=== PATIENT | female | born 1970 | race Asian ===

== ENCOUNTER → 2022-12-22 14:36 | Outpatient (BNVA) | payer OTHER, SELFPAY | PROVIDERS: PCP Podiatrist Foot & Ankle Surgery; Visit Provider Nurse Practitioner Family | DX: M47.816 Spondylosis without myelopathy or radiculopathy, lumbar region (principal); M54.16 Radiculopathy, lumbar region; E11.40 Type 2 diabetes mellitus with diabetic neuropathy, unspecified | CPT/HCPCS: 99202 ==

== ENCOUNTER → 2023-02-05 15:18 | Outpatient (BNVA) | payer OTHER, SELFPAY | PROVIDERS: PCP Physician Assistant; Visit Provider Nurse Practitioner Family | DX: E11.40 Type 2 diabetes mellitus with diabetic neuropathy, unspecified (principal); M47.26 Other spondylosis with radiculopathy, lumbar region | CPT/HCPCS: 17999; 99212; J7336 ==

== ENCOUNTER 2023-06-11 10:41 | Outpatient (AMB) | payer OTHER, SELFPAY ==
--- NOTE | 2023-06-11 10:45 | MHC.OFFVIS ---
Intake Vital Signs 06/11/23 10:48 06/11/23 11:43 06/11/23 11:44 Height 5 ft 2 in Weight 117 lb BMI 21.4 BP 122/73 107/69 117/73 Blood Pressure Location Rt brachial Rt brachial Rt brachial Position Sitting Sitting Sitting Pulse 100 103 H 107 H Pulse Source Pulse Oximeter Pulse Oximeter Pulse Oximeter Pulse Oximetry (%) 100 100 100 Oxygen Delivery Method Room Air Room Air Room Air Comment 15 mins after qutenza application 30 mins after qutenza application Intake Visit Reasons: Quetenza Application Intake Note: Annalisa is here to day for Qutenza application to bilateral feet. Pain today 01/08. Lot#[id number] Exp [facility]# [id number] Power Lineworker Required: Yes Power Lineworker Name: Daughter Accompanied by: Daughter Allergies No Known Allergies Allergy (Verified 06/11/23 11:01) HPI HPI Comments History of Present Illness Details Patient presents for 2nd round application of capsaicin 8% topical patch for diabetic neuropathy in bilateral feet. Patient reports improved pain symptoms during sleep after initial application of Qutenza. Denies any recent cough, cold, infection, fever or other significant changes in medical history since last office visit. PRIOR: Patient is a pleasant 52 years old female presents today with chronic feet pain related to diabetic neuropathy. Her pain is worse during the night and is constant. Pain has been worsening for the past 2 years, constant but most severe at night. Patient describes her pain in terms of tissue damage as constant hot burning, scalding, searing, tingling, and stinging. She is wearing light sandals today and keeps her shoes off during today?s visit. Patient?s daughter explained that the patient is most of the time barefoot as she has increased pain with anything that touches her feet. Pain is increased with activity and movements as well as with rest. Patient tried to manage her pain with gabapentin, lidocaine patches, and diclofenac gel with no pain relief. She also has low back pain and is currently seeing Dr. Fallon at [facility] and has received injections with good results. Patient reports her lumbar spine MRI was completed at [facility]. Reports low back pain with bending and radiation of pain into her right lower extremity anteriorly and laterally. MRI report is not available today. Most recent A1C level is not available as well. Family reports the patient is not checking blood sugars daily as this process is very painful to her fingers. Patient completed 6 weeks of physical therapy last year with no pain relief. 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 Bueno for a potential spinal cord stimulation trial for diabetic neuropathy in her feet. Patient denies any fever, weight loss, bladder or bowel incontinence or saddle anesthesia. [facility] Medical History Vitamin D deficiency Insomnia Depression GERD (gastroesophageal reflux disease) Hypertension Diabetic neuropathy Social History Patient Tobacco Use Status: Former Tobacco user Tobacco use type: Smokeless Tobacco Review of Systems Const All systems reviewed & are unremarkable except as noted in HPI and below Physical Exam Vital Signs: Last Vital Signs Pulse 100 06/11/23 10:48 BP 122/73 06/11/23 10:48 Pulse Ox 100 06/11/23 10:48 Oxygen Delivery Method Room Air 06/11/23 10:48 BMI result Body Mass Index 21.4 General: Appears afebrile. Alert and oriented. Mood and affect appropriate. Fully engaged during exam. Follows and participates in conversation appropriately. Respiratory effort is unlabored. No cough. Able to transition from sit to stand unassisted. Ambulates with bilaterally normal heel strike and toe off. Extrem Other: Patient presents with localized tenderness with palpation to plantar and dorsal surfaces of both feet. Tenderness to tip of right big toe, no swelling, no erythema, no warmth. Decreased sensation in plantar bilateral big toe distribution. No masses, no rash, or skin lesions noted. Protective pain sensation is intact. General: Yes capillary refill normal, Yes no clubbing, cyanosis or edema and Yes no calf tenderness Office Procedures Topical Capsaicin Date 1:: 02/02/23 Date 2:: 06/11/23 Main area of pain on the body: Dorsal and plantar regions of bilateral feet Laterality: Bilateral Location of left foot pain: Plantar, Dorsal, Lateral and Distal Location of right foot pain: Plantar, Dorsal, Lateral and Distal Quality of pain: Aching, Stabbing, Burning, Throbbing, Numb-like and Tiring Details:: EMLA Cream (lidocaine 2.5% and prilocaine 2.5%) was not applied by patient as she could not find her cream. Patient elected to proceed with Qutenza without EMLA cream application. The patient tolerated the procedure well. Her vitals signs remained stable throughout the procedure. Patient was able to complete the stipulated 30 minutes of the therapeutic application without any discomfort. 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 Assessment & Plan Assessment & Plan (1) Chronic painful diabetic neuropathy: Code(s): E11.40 - Type 2 diabetes mellitus with diabetic neuropathy, unspecified Plan Patient is status post 2nd round of application of topical capsaicin 8% for diabetic neuropathy in bilateral feet. Patient tolerated the procedure without significant discomfort without application of EMLA cream prior to the procedure. She was discharged home in stable condition with discharge instructions. EMLA script provided for next Qutenza application. All questions and concerns were answered and the patient agreed with the plan. Greater than 40 minutes were spent in therapeutic application and in coordination of the care. Orders: Orders AMB Capsaicin Patch - Practice Supplied Today E11.40 - Type 2 diabetes mellitus with diabetic neuropathy, unspecified Medications: Changed From lidocaine-prilocaine 2.5-2.5 % Apply 15-30 min to both feet prior to Qutenza patch application on 02/05/23 1 appl topical ONCE 30 grams 0RF Qutenza procedure E11.40 - Type 2 diabetes mellitus with diabetic neuropathy, unspecified To lidocaine-prilocaine 2.5-2.5 % Apply 15-30 min to both feet prior to Qutenza patch application 1 appl topical ONCE 30 grams 0RF Qutenza procedure E11.40 - Type 2 diabetes mellitus with diabetic neuropathy, unspecified Coding Level of Care Code Est Pt Level 5 (45591) Diagnoses Chronic painful diabetic neuropathy E11.40
[2023-06-11 10:48] VITALS: BP 122/73; PULSE 100; O2SAT 100; BMI 21.4
[2023-06-11 11:43] VITALS: BP 107/69; PULSE 103; O2SAT 100
[2023-06-11 11:44] VITALS: BP 117/73; PULSE 107; O2SAT 100
== END 2023-06-11 11:45 | disposition home or self-care (01) ==
PROVIDERS: PCP Physician Assistant; Visit Provider Nurse Practitioner Family
DX: E11.40 Type 2 diabetes mellitus with diabetic neuropathy, unspecified (principal)
CPT/HCPCS: 17999; 99215

== ENCOUNTER → 2023-06-11 10:41 | Outpatient (BNVA) | payer OTHER, SELFPAY | PROVIDERS: PCP Physician Assistant; Visit Provider Nurse Practitioner Family | DX: E11.40 Type 2 diabetes mellitus with diabetic neuropathy, unspecified (principal) | CPT/HCPCS: 17999; 99212; J7336 ==

== ENCOUNTER 2023-09-10 12:40 | Outpatient (AMB) | payer OTHER, SELFPAY ==
[2023-09-10 12:53] VITALS: BP 111/74; PULSE 91; O2SAT 98; BMI 22.9
--- NOTE | 2023-09-10 12:53 | A.OFFVIS_ITS ---
Intake Vital Signs 09/10/23 12:53 09/10/23 13:24 09/10/23 13:45 Height 5 ft 2 in Weight 125 lb BMI 22.9 BP 111/74 109/79 113/73 Blood Pressure Location Rt brachial Rt brachial Rt brachial Position Sitting Sitting Sitting Pulse 91 80 95 Pulse Source Pulse Oximeter Pulse Oximeter Pulse Oximeter Pulse Oximetry (%) 98 99 98 Oxygen Delivery Method Room Air Room Air Room Air Comment 15 mins after qutenza application 30 mins after qutenza application Intake Visit Reasons: QUTENZA/lvm Intake Note: Pain today 02/07 Section Hand Required: Yes Allergies No Known Allergies Allergy (Verified 06/11/23 11:01) HPI HPI Comments History of Present Illness Details Patient presents for 3rd round application of capsaicin 8% topical patch for diabetic neuropathy in bilateral feet. Patient reports improved pain symptoms during sleep after initial application of Qutenza however reports tingling and burning pain over her dorsal parts of both feet remains the same. She also reports increasing pain in both medial aspects of both ankles, right worse than left. She is interested in mild increase in her gabapentin dose for neuropathy. Patient declines previous ankle evaluation by Orthopedic provider or ankle injections. Denies any recent cough, cold, infection, fever or other s ignificant changes in medical history since last office visit. PRIOR: Patient is a pleasant 52 years old female presents today with chronic feet pain related to diabetic neuropathy. Her pain is worse during the night and is constant. Pain has been worsening for the past 2 years, constant but most severe at night. Patient describes her pain in terms of tissue damage as constant hot burning, scalding, searing, tingling, and stinging. She is wearing light sandals today and keeps her shoes off during today?s visit. Patient?s daughter explained that the patient is most of the time barefoot as she has increased pain with anything that touches her feet. Pain is increased with activity and movements as well as with rest. Patient tried to manage her pain with gabapentin, lidocaine patches, and diclofenac gel with no pain relief. She also has low back pain and is currently seeing Dr. Fallon at [facility] and has received injections with good results. Patient reports her lumbar spine MRI was completed at [facility]. Reports low back pain with bending and radiation of pain into her right lower extremity anteriorly and laterally. MRI report is not available today. Most recent A1C level is not available as well. Family reports the patient is not checking blood sugars daily as this process is very painful to her fingers. Patient completed 6 weeks of physical therapy last year with no pain relief. 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 Bueno for a potential spinal cord stimulation trial for diabetic neuropathy in her feet. Patient denies any fever, weight loss, bladder or bowel incontinence or saddle anesthesia. [facility] Medical History Vitamin D deficiency Insomnia Depression GERD (gastroesophageal reflux disease) Hypertension Diabetic neuropathy Social History Patient Tobacco Use Status: Former Tobacco user Tobacco use type: Smokeless Tobacco Review of Systems Const All systems reviewed & are unremarkable except as noted in HPI and below Physical Exam Vital Signs: Last Vital Signs Pulse 91 09/10/23 12:53 BP 111/74 09/10/23 12:53 Pulse Ox 98 09/10/23 12:53 Oxygen Delivery Method Room Air 09/10/23 12:53 BMI result Body Mass Index 22.9 General: Appears afebrile. Alert and oriented. Mood and affect appropriate. Follows and participates in conversation appropriately. Respiratory effort is unlabored. No cough. Able to transition from sit to stand unassisted. Ambulates with bilaterally normal heel strike and toe off. Back/Spine/Pelvis Other: Painful facet loading bilaterally. Lumbar extension and flexion reproduces mild to moderate symptoms. Cervical Spine: cervical ROM normal and No Cervical spine tenderness Thoracic/Lumbar Spine: thoracic and lumbar spine normal to inspection, thoraco- lumbar ROM normal, Lasegue's sign negative, straight leg raise negative bilaterally, pain with thoraco-lumbar ROM, No thoracic spinal tenderness and lumbar spinal tenderness at L4 and at L5 Pelvis: no buttock tenderness Sacroiliac joints: bilaterally nontender Skin General skin exam: no rashes or lesions noted Extrem Other: Patient presents with localized tenderness with palpation to dorsal surfaces of both feet and medial ankles. There is no swelling, no erythema, no warmth. Decreased sensation in plantar surfaces of both feet. No masses, no rash, or skin lesions noted. Protective pain sensation is intact. General: Yes capillary refill normal, Yes no joint enlargement, Yes no clubbing, cyanosis or edema and Yes no calf tenderness Office Procedures Topical Capsaicin Date 1:: 02/05/23 Date 2:: 06/11/23 Date 3:: 09/10/23 Main area of pain on the body: Bilateral feet Laterality: Bilateral Location of left foot pain: Anterior, Posterior, Plantar, Dorsal, Medial and Distal Location of right foot pain: Anterior, Posterior, Plantar, Dorsal, Medial and Distal Quality of pain: Aching, Nagging, Burning, Gnawing, Numb-like, Tiring, Sharp and Unbearable Details:: Two patches, 560 cm2 were utilized per each foot. EMLA Cream (lidocaine 2.5% and prilocaine 2.5%) was applied by patient at home prior to arriving for application of the patch. The patient tolerated the procedure well. Her vitals signs remained stable throughout the procedure. Patient was able to complete the stipulated 35 minutes of the therapeutic application without any discomfort. Office Meds capsaicin-skin cleanser 8 % topical kit Performing Provider: JOSEFA Lala Performing Location: [facility] [place] Administered by: JOSEFA Lala on 09/10/23 13:08 Dose Route Admin Location Dispensed Lot Number Expiration Date [facility] Religious Assistant 4 ea topical [facility] 4 ea [id number] 10/01/25 30693-408-06 [employer] Assessment & Plan Assessment & Plan (1) Chronic painful diabetic neuropathy: Code(s): E11.40 - Type 2 diabetes mellitus with diabetic neuropathy, unspecified (2) Bilateral ankle pain: Code(s): M25.571 - Pain in right ankle and joints of right foot; M25.572 - Pain in left ankle and joints of left foot (3) Chronic low back pain: Code(s): M54.50 - Low back pain, unspecified; G89.29 - Other chronic pain Plan Patient is status post 3rd round of application of topical capsaicin 8% for diabetic neuropathy in bilateral feet. Patient tolerated the procedure without significant discomfort without application of EMLA cream prior to the procedure. She was discharged home in stable condition with discharge instructions. Refill provided for gabapentin with mild increase in her current dosage from 300 mg to 400 mg TID. Neurodiagnostic studies to differentiate neuropathy type for potential neuromodulation procedures. We again reviewed SCS trial and implant as a longer term pain management for her chronic low back pain and diabetic neuropathy. Orthopedic referral for bilateral medial ankle pain. Xrays ordered. All questions and concerns were answered and the patient agreed with the plan. I spent 44 minutes were spent in reviewing patient's record, seeing the patient, therapeutic application, documenting in the medical record and in coordination of the care. Orders: Orders AMB Capsaicin Patch - Practice Supplied Today E11.40 - Type 2 diabetes mellitus with diabetic neuropathy, unspecified NE nerve conduction velocity Today E11.40 - Type 2 diabetes mellitus with diabetic neuropathy, unspecified NE electromyogram (EMG) Today E11.40 - Type 2 diabetes mellitus with diabetic neuropathy, unspecified XR ankle LT 2V Today M25.571 - Pain in right ankle and joints of right foot, M25.572 - Pain in left ankle and joints of left foot XR ankle RT 2V Today M25.571 - Pain in right ankle and joints of right foot, M25.572 - Pain in left ankle and joints of left foot Referrals Orthopedics Referral M25.571 - Pain in right ankle and joints of right foot, M25.572 - Pain in left ankle and joints of left foot Medications: Changed From gabapentin 300 mg PO TID E11.40 - Type 2 diabetes mellitus with diabetic neuropathy, unspecified To gabapentin 400 mg PO TID 30 days 90 caps 1RF pain E11.40 - Type 2 diabetes mellitus with diabetic neuropathy, unspecified Coding Level of Care Code Est Pt Level 5 (76298) Diagnoses Chronic painful diabetic neuropathy E11.40 Bilateral ankle pain M25.571; M25.572 Chronic low back pain M54.50; G89.29
[2023-09-10 13:24] VITALS: BP 109/79; PULSE 80; O2SAT 99
[2023-09-10 13:45] VITALS: BP 113/73; PULSE 95; O2SAT 98
== END 2023-09-10 13:50 | disposition home or self-care (01) ==
PROVIDERS: PCP Physician Assistant; Visit Provider Nurse Practitioner Family
DX: E11.40 Type 2 diabetes mellitus with diabetic neuropathy, unspecified (principal); M25.571 Pain in right ankle and joints of right foot; M25.572 Pain in left ankle and joints of left foot; M54.50 Low back pain, unspecified; G89.29 Other chronic pain
CPT/HCPCS: 17999; 99215

== ENCOUNTER → 2023-09-10 12:40 | Outpatient (BNVA) | payer OTHER, SELFPAY | PROVIDERS: PCP Physician Assistant; Visit Provider Nurse Practitioner Family | DX: M25.571 Pain in right ankle and joints of right foot (principal); M25.572 Pain in left ankle and joints of left foot; M54.50 Low back pain, unspecified; E11.40 Type 2 diabetes mellitus with diabetic neuropathy, unspecified; G89.29 Other chronic pain | CPT/HCPCS: 17999; 99212; J7336 ==

== ENCOUNTER 2023-09-17 13:32 | Outpatient (REF) | payer OTHER, SELFPAY ==
--- NOTE | ~2023-09-17 | XR_ITS ---
EXAMINATION: Bilateral ankle series CLINICAL INFORMATION: Pain in the ankle. COMPARISON: None. TECHNIQUE: 3 views of each ankle FINDINGS: Right ankle: The bones joints and soft tissues are normal except for a small posterior calcaneal spur. Left ankle: Bones joints and soft tissues are normal except for small posterior calcaneal spur. XR/XR ankle RT 2V IMPRESSION: RIGHT ANKLE: Small posterior calcaneal spur. LEFT ANKLE: Small posterior calcaneal spur.
--- NOTE | ~2023-09-17 | XR_ITS ---
EXAMINATION: Bilateral ankle series CLINICAL INFORMATION: Pain in the ankle. COMPARISON: None. TECHNIQUE: 3 views of each ankle FINDINGS: Right ankle: The bones joints and soft tissues are normal except for a small posterior calcaneal spur. Left ankle: Bones joints and soft tissues are normal except for small posterior calcaneal spur. XR/XR ankle LT 2V IMPRESSION: RIGHT ANKLE: Small posterior calcaneal spur. LEFT ANKLE: Small posterior calcaneal spur.
== END 2023-09-17 13:33 | disposition home or self-care (01) ==
LOC: HO.XRAY 13:32
PROVIDERS: Visit Provider Nurse Practitioner Family
DX: M25.571 Pain in right ankle and joints of right foot (principal); M25.572 Pain in left ankle and joints of left foot
CPT/HCPCS: 73600

== ENCOUNTER 2023-10-22 13:30 | Outpatient (AMB) | payer OTHER, SELFPAY ==
--- NOTE | 2023-10-22 13:46 | A.OFFVIS_ITS ---
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 Patient reports her pain has been present for 3-5 months, denies injury. Her pain is worse with walking and in a sitting position her pain will radiate up to her knees. No previous tx. She was seen at pain management who referred her to orthopedics for an evaluation. 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 She states she has worsening intense throbbing pain in her bilateral ankle which is aggravated at night, with ambulation and her pain radiates up to her knee when sitting. She rates the pain as over 10 on the scale of 0-10. She is ambulating with a walker and finds it difficult to cook and wash dishes. She was seen at pain management who referred her to our office. She denies any injury and has not had any treatment in the past. She has a history of diabetic neuropathy in her bilateral feet and takes gabapentin for her pain. [facility] Medical History Vitamin D deficiency Insomnia Depression GERD (gastroesophageal reflux disease) Hypertension Diabetic neuropathy Social History Patient Tobacco Use Status: Former Tobacco user Tobacco use type: Smokeless Tobacco Current occupational status: unemployed Review of Systems Const All systems reviewed & are unremarkable except as noted in HPI and below Physical Exam Vital Signs: BMI result Body Mass Index 22.9 Const General: cooperative, healthy appearing, comfortable, no acute distress, well developed and alert Orientation/consciousness: patient oriented x3 HEENT Head: Yes normal to inspection, Yes normocephalic and Yes atraumatic Eyes General: appearance normal, both eyes and all related structures Resp Effort & Inspection: normal respiratory effort and able to speak in complete sentences Cardio Rate: regular rate Peripheral pulses: Peripheral pulses 2+ throughout GI Palpation (GI): Soft to palpation Skin Lesions: no lesions Rashes: no rashes Neuro General: patient oriented x3 Extrem Other: Bilateral ankle: Normal to inspection. She has diffused hypersensitivity and tenderness through the bilateral feet into plantar fascia to the posterior aspect of the calf. She has full ankle ROM with no crepitus. NVI. Results Reviewed Results Reviewed: X-rays of the bilateral ankle obtained on 09/17/23 is negative for any acute or chronic abnormality. Assessment & Plan Assessment & Plan (1) Chronic painful diabetic neuropathy: Code(s): E11.40 - Type 2 diabetes mellitus with diabetic neuropathy, unspecified (2) Bilateral ankle pain: Code(s): M25.571 - Pain in right ankle and joints of right foot; M25.572 - Pain in left ankle and joints of left foot Qualifiers: Chronicity: chronic Qualified Code(s): M25.571 - Pain in right ankle and joints of right foot; M25.572 - Pain in left ankle and joints of left foot; G89.29 - Other chronic pain Plan Patient has been treatment with pain management and physiatry for her neuropathy and lower back pain. I did not see any etiology for her ankle pain other that what may be related to her diabetic neuropathy. I did give her a course of physical therapy to work on ankle strengthening and proprioceptive training. I will also refer her to physiatry for potential modifications for her diabetic neuropathy to see if alternate treatment regimen would benefit her. She is content with this plan and will follow-up with me as needed. Orders: Orders PT Evaluation and Treatment Today E11.40 - Type 2 diabetes mellitus with diabetic neuropathy, unspecified, G89.29 - Other chronic pain, M25.571 - Pain in right ankle and joints of right foot, M25.572 - Pain in left ankle and joints of left foot, M54.50 - Low back pain, unspecified Patient Instructions: Scribed for Dennis Farmer PA-C, by Chidi Romero medical lab scientist, on 10/22/2023 at 1:45 PM EST. Dennis Brandon PA-C, have personally reviewed and agree with the information entered by the scribe. Coding Level of Care Code New Pt Level 3 (62565) Diagnoses Chronic painful diabetic neuropathy E11.40 Chronic pain of both ankles M25.571; M25.572; G89.29 Chronicity: chronic
[2023-10-22 13:50] VITALS: BMI 22.9
== END 2023-10-22 14:25 | disposition home or self-care (01) ==
PROVIDERS: PCP Physician Assistant; Visit Provider Physician Assistant
DX: M25.571 Pain in right ankle and joints of right foot (principal); M25.572 Pain in left ankle and joints of left foot; E11.40 Type 2 diabetes mellitus with diabetic neuropathy, unspecified; G89.29 Other chronic pain
CPT/HCPCS: 99203

== ENCOUNTER → 2023-10-22 13:30 | Outpatient (BNVA) | payer OTHER, SELFPAY | PROVIDERS: PCP Physician Assistant; Visit Provider Physician Assistant | DX: E11.40 Type 2 diabetes mellitus with diabetic neuropathy, unspecified (principal); M25.571 Pain in right ankle and joints of right foot; M25.572 Pain in left ankle and joints of left foot; G89.29 Other chronic pain | CPT/HCPCS: 99202 ==

== ENCOUNTER 2023-10-24 13:28 | Outpatient (REF) | payer OTHER, SELFPAY ==
--- NOTE | 2023-10-24 13:32 | EMG_ITS ---
Chief complaint: Chronic painful burning sensation in both legs. History of poorly controlled diabetes. Reason for referral: Evaluate for neuropathy Referred by: Procedure done: Bilateral lower extremity NCS/EMG Precautions and/or limitations: None The limb temperature was monitored continuously and remained between 32-36 degrees C during the performance of the NCS. Nerve Conduction Studies Anti Sensory Summary Table ?Stim Site NR Onset (ms) Norm Onset (ms) Peak (ms) Norm Peak (ms) O-P Amp (?V) Norm O-P Amp Site1 Site2 Delta-0 (ms) Dist (cm) Josef (m/s) Norm Josef (m/s) Left Sural Anti Sensory (Lat Mall) Calf NR <4.0 >5.0 Calf Lat Mall 14.0 Right Sural Anti Sensory (Lat Mall) Calf NR <4.0 >5.0 Calf Lat Mall 14.0 Motor Summary Table ?Stim Site NR Onset (ms) Norm Onset (ms) O-P Amp (mV) Norm O-P Amp iAmp (mV) Amp (1st) (%) Site1 Site2 Delta-0 (ms) Dist (cm) Josef (m/s) Norm Josef (m/s) Right Peroneal Motor (Ext Dig Brev) Ankle ? 3.9 <4.0 2.8 >2.5 2.9 100.0 Ankle Ext Dig Brev 3.9 0.0 B Fib ? 10.1 2.1 2.3 75.0 B Fib Ankle 6.2 27.0 44 >40 Poplt ? 11.0 2.0 2.3 71.4 Poplt B Fib 0.9 4.5 50 >40 Left Tibial Motor (Abd Serrano Brev) Ankle ? 3.8 <5 11.6 >2.5 14.3 100.0 Ankle Abd Serrano Brev 3.8 0.0 Knee ? 11.2 7.6 9.1 65.5 Knee Ankle 7.4 31.0 42 >40 Right Tibial Motor (Abd Serrano Brev) Ankle ? 3.5 <5 8.6 >2.5 11.0 100.0 Ankle Abd Serrano Brev 3.5 0.0 Knee ? 11.6 6.1 7.0 70.9 Knee Ankle 8.1 33.0 41 >40 EMG ?Side Muscle Nerve Root Ins Act Fibs Psw Amp Dur Poly Recrt Int Pat Comment Right AbdHallucis MedPlantar S1-2 Nml Nml Nml Nml Nml 0 Nml Complete Right AntTibialis Dp Br Peron L4-5 Nml Nml Nml Nml Nml 0 Nml Complete Right PostTibialis Tibial L5, S1 Nml Nml Nml Nml Nml 0 Nml Complete Right MedGastroc Tibial S1-2 Nml Nml Nml Nml Nml 0 Nml Complete Right VastusMed Femoral L2-4 Nml Nml Nml Nml Nml 0 Nml Complete Left AbdHallucis MedPlantar S1-2 Nml Nml Nml Nml Nml 0 Nml Complete Left AntTibialis Dp Br Peron L4-5 Nml Nml Nml Nml Nml 0 Nml Complete Left PostTibialis Tibial L5, S1 Nml Nml Nml Nml Nml 0 Nml Complete Left MedGastroc Tibial S1-2 Nml Nml Nml Nml Nml 0 Nml Complete Left VastusMed Femoral L2-4 Nml Nml Nml Nml Nml 0 Nml Complete FINDINGS: Bilateral sural nerves showed no response. All other nerves tested were within normal. Concentric needle EMG was performed in selected muscles of the bilateral lower extremity. Study did not reveal signs of electric abnormalities as shown in the table below. IMPRESSION: 1. This is an abnormal study. 2. 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 3. There is no electrodiagnostic evidence for peroneal neuropathy, tibial neuropathy. lumbosacral plexopathy, or lumbar radiculopathy. Thank you for your kind referral. Marie Zhu MD, HANNA Board Certified, [place] Board of Physical Medicine and Rehabilitation (ABPMR) Board Certified, [place] Board of Electrodiagnostic Medicine (ABEM) CODIN 16115 x 2 MTDD
== END 2023-10-24 13:29 | disposition home or self-care (01) ==
LOC: HO.NEURO 13:28
PROVIDERS: PCP Physician Assistant; Visit Provider Nurse Practitioner Family
DX: E11.40 Type 2 diabetes mellitus with diabetic neuropathy, unspecified (principal)
CPT/HCPCS: 95886; 95909

== ENCOUNTER → 2023-10-24 13:32 | Outpatient (BNV) | payer OTHER, SELFPAY | PROVIDERS: PCP Physician Assistant; Visit Provider Physical Medicine & Rehabilitation | DX: G62.89 Other specified polyneuropathies (principal); R20.8 Other disturbances of skin sensation | CPT/HCPCS: 95886; 95909 ==

== ENCOUNTER 2023-10-29 09:16 | Outpatient (RCR) | payer OTHER, SELFPAY ==
--- NOTE | 2023-10-29 10:50 | MHC.PT.EP ---
[facility] [place] Office [place] Office [place] Office [address] Mahnaz Hodges [address] [phone] F: [phone] F: [phone] F: [phone] F: [phone] Physical Therapy Plan of Care Date of Evaluation: 10/29/23 Date of Surgery: NA Diagnosis: Low back pain Other chronic pain Chronic painful diabetic neuropathy, chronic low back pain, B ankle pain Assessment: Annalisa is a 53 year old female who is referred to PT for low back pain, other chronic pain, chronic painful diabetic neuropathy, chronic low back pain, B ankle pain . She reports of having pain in B LE for about 3 years. Has had PT in the past but had no change in symptoms. She also reports of having back pain for 10 years. She has a h/o diabetes and diabetic neuropathy in B LE. On PT examination she reported of having 8/10 pain in B LE, constant tingling, numbness, and burning sensation in B LE which interrupts sleeping and impaired posture and gait. Unable to perform further evaluation as pt and family expressed desire to do PT in [place] as it is closer to her house and more convenient for them. Due to this further evaluation not done. She was given education on diabetic foot care, importance of wearing foot wear and goals of PT. No goals for the patient or procedural interventions performed today as pt stated she would like to be d/c from PT and start PT in [place]. She is therefore being d/c from PT today. Frequency and Duration: The patient will be seen Short Term Goals: Alf Goals: Treatment Plan: Modalities to reduce pain, spasms and effusion. Manual therapy to restore motion and function. Therapeutic exercise to improve strength and flexibility. Neuromuscular re-education for posture and balance. Therapeutic activities to return to functional activities of daily living. Electronically signed by: Ashleigh Souza PT DPT Please sign and return to therapist. Thank you for your referral.
--- NOTE | 2023-10-29 10:51 | MHC.PT.DC ---
[facility] [place] Office [place] Office [place] Office [address] Mahnaz Hodges [address] [phone] F: [phone] F: [phone] F: [phone] F: [phone] Physical Therapy Discharge Report Diagnosis: Low back pain Other chronic pain Chronic painful diabetic neuropathy, chronic low back pain, B ankle pain Date of Surgery: NA Date of Evaluation: 10/29/23 Date of Discharge: 10/29/23 Treatments to Date: 1 Cancellations to Date: 0 No Shows to Date: 0 Discharge Status: Patient Elected to Stop Discharge Summary: Order received, pt evaluated. After history and gait assessment, pt and family expressed desire to go to [place] for PT due to closeness to residence. No further evaluation was therefore done today. Electronically signed by: Ashleigh Souza, PT DPT Please sign and return to therapist. Thank you for your referral.
== END 2023-10-29 10:51 | disposition home or self-care (01) ==
LOC: HO.PT 09:16
PROVIDERS: PCP Physician Assistant; Visit Provider Physician Assistant
DX: E11.40 Type 2 diabetes mellitus with diabetic neuropathy, unspecified (principal); G89.29 Other chronic pain; M54.50 Low back pain, unspecified; M25.571 Pain in right ankle and joints of right foot; M25.572 Pain in left ankle and joints of left foot
CPT/HCPCS: 97161

== ENCOUNTER 2023-12-17 11:10 | Outpatient (AMB) | payer OTHER, SELFPAY ==
--- NOTE | 2023-12-17 11:15 | MHC.OFFVIS ---
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 Patient reports improved pain symptoms in her feet at night with each application. She is also taking gabapentin and amitriptyline with good tolerance and no adverse effects. EMG/NVC studies results reviewed with patient and family today. Patient reports she is scheduled to undergo therapeutic back injections with Dr. Mendez at [facility] this month. Reports recent lumbar spine MRI completed at [facility]. This reports is not available for review today. She reports partial improvement in her bilateral ankle symptoms with physical therapy and massage. Denies any recent cough, cold, infection, fever or other significant changes in medical history since last office visit. Most recent A1C 6.8 (reports history of A1C levels >11.0). PRIOR: Patient is a pleasant 52 years old female presents today with chronic feet pain related to diabetic neuropathy. Her pain is worse during the night and is constant. Pain has been worsening for the past 2 years, constant but most severe at night. Patient describes her pain in terms of tissue damage as constant hot burning, scalding, searing, tingling, and stinging. She is wearing light sandals today and keeps her shoes off during today?s visit. Patient?s daughter explained that the patient is most of the time barefoot as she has increased pain with anything that touches her feet. Pain is increased with activity and movements as well as with rest. Patient tried to manage her pain with gabapentin, lidocaine patches, and diclofenac gel with no pain relief. She also has low back pain and is currently seeing Dr. Fallon at [facility] and has received injections with good results. Patient reports her lumbar spine MRI was completed at [facility]. Reports low back pain with bending and radiation of pain into her right lower extremity anteriorly and laterally. MRI report is not available today. Most recent A1C level is not available as well. Family reports the patient is not checking blood sugars daily as this process is very painful to her fingers. Patient completed 6 weeks of physical therapy last year with no pain relief. Patient was referred to us by her lead fabricator, Dr. Bueno for a potential spinal cord stimulation trial for diabetic neuropathy in her feet. Patient denies any fever, weight loss, bladder or bowel incontinence or saddle anesthesia. [facility] Medical History Vitamin D deficiency Insomnia Depression GERD (gastroesophageal reflux disease) Hypertension Diabetic neuropathy Social History Patient Tobacco Use Status: Former Tobacco user Tobacco use type: Smokeless Tobacco Current occupational status: unemployed Review of Systems Const All systems reviewed & are unremarkable except as noted in HPI and below Physical Exam Vital Signs: Last Vital Signs Pulse 89 12/17/23 11:44 BP 105/72 12/17/23 11:44 Pulse Ox 99 12/17/23 11:44 Oxygen Delivery Method Room Air 12/17/23 11:44 BMI result Body Mass Index 21.9 General: Appears afebrile. Alert and oriented. Mood and affect appropriate. Follows and participates in conversation appropriately. Respiratory effort is unlabored. Able to transition from sit to stand unassisted. Uses cane with ambulation. Ambulates with bilaterally normal heel strike and toe off. Extrem Other: Localized tenderness with palpation to plantar and dorsal surfaces of both feet. Decreased sensation in plantar bilateral big toe distribution, otherwise sharp and dull with protective sensation is intact bilaterally. No masses, no rash, or skin lesions noted. General: Yes full ROM, Yes capillary refill normal, Yes no clubbing, cyanosis or edema and Yes no calf tenderness Office Procedures Topical Capsaicin Main area of pain on the body: Bilateral feet Laterality: Bilateral Location of left foot pain: Plantar, Dorsal and Distal Location of right foot pain: Plantar, Dorsal and Distal Quality of pain: Aching, Stabbing, Numb-like, Tiring and Shooting Details:: Two patches, 560 cm2 were utilized per each foot. EMLA Cream (lidocaine 2.5% and prilocaine 2.5%) was applied by patient at home prior to arriving for application of the patch. The patient tolerated the procedure well. Her vitals signs remained stable throughout the procedure. Patient was able to complete the stipulated 30 minutes of the therapeutic application without any discomfort. Office Meds capsaicin-skin cleanser 8 % topical kit Performing Provider: JOSEFA Lala Performing Location: [facility] Administered by: JOSEFA Lala on 12/17/23 11:27 Dose Route Admin Location Dispensed Lot Number Expiration Date NDC Managing Editor 4 ea topical [facility] 4 ea [id number] 03/01/26 12019-042-91 GLOG Results Reviewed Results Reviewed: NE electromyogram (EMG); NE nerve conduction velocity 10/24/23 FINDINGS: Bilateral sural nerves showed no response. All other nerves tested were within normal. Concentric needle EMG was performed in selected muscles of the bilateral lower extremity. Study did not reveal signs of electric abnormalities as shown in the table below. IMPRESSION: 1. This is an abnormal study. 2. 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 3. There is no electrodiagnostic evidence for peroneal neuropathy, tibial neuropathy. lumbosacral plexopathy, or lumbar radiculopathy. Bilateral ankle series 09/17/23 CLINICAL INFORMATION: Pain in the ankle. FINDINGS: Right ankle: The bones joints and soft tissues are normal except for a small posterior calcaneal spur. Left ankle: Bones joints and soft tissues are normal except for small posterior calcaneal spur. IMPRESSION: RIGHT ANKLE: Small posterior calcaneal spur. LEFT ANKLE: Small posterior calcaneal spur. Assessment & Plan Assessment & Plan (1) Chronic painful diabetic neuropathy: Code(s): E11.40 - Type 2 diabetes mellitus with diabetic neuropathy, unspecified (2) Bilateral ankle pain: Code(s): M25.571 - Pain in right ankle and joints of right foot; M25.572 - Pain in left ankle and joints of left foot Qualifiers: Chronicity: chronic Qualified Code(s): M25.571 - Pain in right ankle and joints of right foot; M25.572 - Pain in left ankle and joints of left foot; G89.29 - Other chronic pain (3) Chronic low back pain: Code(s): M54.50 - Low back pain, unspecified; G89.29 - Other chronic pain Plan Patient is status post 4th round of application of topical capsaicin 8% for diabetic neuropathy in bilateral feet. Patient tolerated the procedure without significant discomfort without application of EMLA cream prior to the procedure. She was discharged home in stable condition with discharge instructions. Continue gabapentin and amitriptyline. Denies any side effects. Refill sent for amitriptyline today per patient's request. EMG/NVC results discussed with patient and her family. Reviewed Neuromodulation with SCS trial vs implant. Patient would like to hold off at this time. Medical release sent to [facility] for recent lumbar spine MRI report. Patient is scheduled to undergo therapeutic back injection at [facility]. She is aware back injections can be provided through our office as well. I spent 40 minutes were spent in reviewing patient's record, seeing the patient, therapeutic application, documenting in the medical record and in coordination of the care. Orders: Orders AMB Capsaicin Patch - Practice Supplied Today E11.40 - Type 2 diabetes mellitus with diabetic neuropathy, unspecified Medications: Refilled amitriptyline 10 mg PO BEDTIME 30 days 30 tabs 1RF pain E11.40 - Type 2 diabetes mellitus with diabetic neuropathy, unspecified Coding Level of Care Code Est Pt Level 4 (53935) Diagnoses Chronic painful diabetic neuropathy E11.40 Chronic pain of both ankles M25.571; M25.572; G89.29 Chronicity: chronic Chronic low back pain M54.50; G89.29
[2023-12-17 11:20] VITALS: BP 121/78; PULSE 85; O2SAT 100; BMI 21.9
[2023-12-17 11:44] VITALS: BP 105/72; PULSE 89; O2SAT 99
[2023-12-17 11:59] VITALS: BP 119/73; PULSE 86; O2SAT 99
== END 2023-12-17 12:17 | disposition home or self-care (01) ==
PROVIDERS: PCP Physician Assistant; Visit Provider Nurse Practitioner Family
DX: E11.40 Type 2 diabetes mellitus with diabetic neuropathy, unspecified (principal); G89.29 Other chronic pain; M25.571 Pain in right ankle and joints of right foot; M25.572 Pain in left ankle and joints of left foot; M54.50 Low back pain, unspecified
CPT/HCPCS: 17999; 99214

== ENCOUNTER → 2023-12-17 11:11 | Outpatient (BNVA) | payer OTHER, SELFPAY | PROVIDERS: PCP Physician Assistant; Visit Provider Nurse Practitioner Family | DX: E11.40 Type 2 diabetes mellitus with diabetic neuropathy, unspecified (principal); M25.571 Pain in right ankle and joints of right foot; M25.572 Pain in left ankle and joints of left foot; M54.50 Low back pain, unspecified; G89.29 Other chronic pain | CPT/HCPCS: 17999; 99212; J7336 ==

== ENCOUNTER 2023-12-20 09:30 | Outpatient (AMB) | payer OTHER, SELFPAY ==
[2023-12-20 09:43] VITALS: BMI 21.9
--- NOTE | 2023-12-20 09:43 | MHC.OFFVIS ---
Intake Vital Signs 12/20/23 09:43 Height 5 ft 2 in Weight 120 lb BMI 21.9 Intake Visit Reasons: new prob- neuropathy/back pain Intake Note: Annalisa 53 yr old female presents today with her daughter Alejandro, for a new problem visit for her back pain. States pain is mainly on her lower back and has sharp pains radiating down her leg. Back pain presents for for about 15 years and she is now also having numbness and tingling in bilateral legs/feet for the last 2 years. States its getting worse over time. Patient is scheduled to undergo therapeutic back injection at [facility], pending appointment. She is also being seen by pain management and also referred patient to Dr. Boyer. 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 Allergies No Known Allergies Allergy (Verified 12/20/23 09:51) Medication List - Last Reconciled 12/20/23 by Marie Zhu MD amitriptyline 10 mg PO BEDTIME 30 days amlodipine 5 mg PO DAILY amlodipine 10 mg PO DAILY blood sugar diagnostic (FreeStyle Lite Strips) As directed blood-glucose meter (FreeStyle Lite Meter kit) As directed cholecalciferol (vitamin D3) 50 mcg PO DAILY cyanocobalamin (vitamin B-12) mcg PO diclofenac sodium 75 mg PO BID diclofenac sodium 1% 4 grams topical QID 30 days empagliflozin (Jardiance) 10 mg PO DAILY gabapentin 400 mg PO TID 30 days gabapentin 300 mg PO TID glipizide 10 mg PO BID lancets (FreeStyle Lancets) As directed lidocaine 5% 2 patches topical DAILY lidocaine-prilocaine 2.5-2.5 % 1 appl topical ONCE metformin ER 500 mg PO DAILY mirtazapine 15 mg PO BEDTIME pantoprazole 20 mg PO DAILY tizanidine 2 mg PO TID HPI HPI Comments History of Present Illness Details Here with daughter who helped with translation. Says they are here for second opinion for neuropathy. Discussed EMG results Discussed how this can be stocking glove distribution. Numbness on feet bottom and now going more proximal, described tingling and pain as well. She has also noted numbness on both hands. She has been diabetic for 8 years, with highest HbA1c 11. Last HbA1c was 6.2, better controlled. On gabapentin, recently increased to 400mg TID, no relief yet. She admits right sided neck pain. For low back pain, she has gone to [facility] for injection one time; transferred care to [facility], following Dr. Mendez, planning for injections with [facility]. [facility] Medical History Vitamin D deficiency Insomnia Depression GERD (gastroesophageal reflux disease) Hypertension Diabetic neuropathy Social History (Updated 12/20/23 @ 09:51 by Liane Caputo [facility]) Patient Tobacco Use Status: Former Tobacco user Tobacco use type: Smokeless Tobacco Current occupational status: unemployed Current occupation: right hand Review of Systems Const All systems reviewed & are unremarkable except as noted in HPI and below Physical Exam Vital Signs: BMI result Body Mass Index 21.9 Constitutional: Patient appears to be in no acute distress, well nourished and well developed. Patient was appropriately conversant and oriented. Good historian. MSK: Inspection reveals appropriate head and neck positioning. Tight on right upper trapezius. Cervical ROM was limited lateral rotation due to pain. Spurling's sign negative. Positive carpal compression right. Strength is 5/5 in all muscle groups tested. No increased tone noted. Neurological: Valencia?s negative bilaterally. Gait is antalgic without loss of balance. Slow with cane. Difficulty getting up from seated position. Results Reviewed Results Reviewed: EMG done by me 10/24/2023 IMPRESSION: 1. This is an abnormal study. 2. 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 3. There is no electrodiagnostic evidence for peroneal neuropathy, tibial neuropathy. lumbosacral plexopathy, or lumbar radiculopathy. I reviewed records from the following: [facility] Assessment & Plan Assessment & Plan (1) Chronic painful diabetic neuropathy: Code(s): E11.40 - Type 2 diabetes mellitus with diabetic neuropathy, unspecified (2) Myofascial pain: Code(s): M79.18 - Myalgia, other site (3) Chronic low back pain: Code(s): M54.50 - Low back pain, unspecified; G89.29 - Other chronic pain Qualifiers: Back pain laterality: bilateral Sciatica presence: with sciatica Sciatica laterality: sciatica of right side Qualified Code(s): M54.41 - Lumbago with sciatica, right side; G89.29 - Other chronic pain Plan 1. Diabetic neuropathy - only sural snaps abnormal on EMG. Discussed what this means. Discussed that perhaps having DM better controlled would prevent further worsening of neuropathy. PCP prescribes gabapentin. Consider changing to Lyrica? Would schedule for EMG BUE to rule out stocking glove distribution vs CTS vs radiculopathy. 2. Right sided neck pain - tender on right upper trapezius. Actually tender almost everywhere, wonder if she has fibromyalgia. EMG to rule out cervical radiculopathy but low suspicion, no signs of radiculopathy or myelopathy on exam today. 3. Chronic back pain - already seeing [facility] for injections. May continue with them. Continue PT. She has follow up with pain management in a few months. Assessment and plan discussed with patient, and patient was agreeable. All questions were answered thoroughly. Marie Zhu MD, HANNA Board Certified, [place] Board of Physical Medicine and Rehabilitation (ABPMR) Board Certified, [place] Board [employer] Electrodiagnostic Medicine (ABEM) Orders: Orders NE electromyogram (EMG) Today E11.40 - Type 2 diabetes mellitus with diabetic neuropathy, unspecified NE nerve conduction velocity Today E11.40 - Type 2 diabetes mellitus with diabetic neuropathy, unspecified Coding Level of Care Code Est Pt Level 4 (00021) Diagnoses Chronic painful diabetic neuropathy E11.40 Myofascial pain M79.18 Chronic bilateral low back pain with right-sided sciatica M54.41; G89.29 Back pain laterality: bilateral Sciatica presence: with sciatica Sciatica laterality: sciatica of right side
== END 2023-12-20 10:19 | disposition home or self-care (01) ==
PROVIDERS: PCP Physician Assistant; Visit Provider Physical Medicine & Rehabilitation
DX: E11.40 Type 2 diabetes mellitus with diabetic neuropathy, unspecified (principal); M79.18 Myalgia, other site; M54.41 Lumbago with sciatica, right side; G89.29 Other chronic pain
CPT/HCPCS: 99214

== ENCOUNTER → 2023-12-20 09:30 | Outpatient (BNVA) | payer OTHER, SELFPAY | PROVIDERS: PCP Physician Assistant; Visit Provider Physical Medicine & Rehabilitation | DX: E11.40 Type 2 diabetes mellitus with diabetic neuropathy, unspecified (principal); M79.18 Myalgia, other site; M54.41 Lumbago with sciatica, right side; G89.29 Other chronic pain | CPT/HCPCS: 99212 ==

== ENCOUNTER 2024-01-04 14:02 | Outpatient (REF) | payer OTHER, SELFPAY ==
--- NOTE | 2024-01-04 14:06 | EMG_ITS ---
Chief complaint: Bilateral hand numbness Reason for referral: Evaluate for Carpal Tunnel Syndrome Procedure done: Bilateral upper extremities NCS/EMG Precautions and/or limitations: None The limb temperature was monitored continuously and remained between 32-36 degrees C during the performance of the NCS. Nerve Conduction Studies Anti Sensory Summary Table ?Stim Site NR Onset (ms) Norm Onset (ms) Peak (ms) Norm Peak (ms) O-P Amp (?V) Norm O-P Amp Site1 Site2 Delta-0 (ms) Dist (cm) Josef (m/s) Norm Josef (m/s) Left Median Anti Sensory (2nd Digit) Wrist ? 2.4 3.5 <3.6 29.0 >10 Wrist 2nd Digit 2.4 14.0 58 Right Median Anti Sensory (2nd Digit) Wrist ? 2.8 3.6 <3.6 10.5 >10 Wrist 2nd Digit 2.8 14.0 50 Left Ulnar Anti Sensory (5th Digit) Wrist ? 1.5 3.2 <3.7 15.8 >15.0 Wrist 5th Digit 1.5 14.0 93 Right Ulnar Anti Sensory (5th Digit) Wrist ? 0.9 3.1 <3.7 34.1 >15.0 Wrist 5th Digit 0.9 14.0 156 Motor Summary Table ?Stim Site NR Onset (ms) Norm Onset (ms) O-P Amp (mV) Norm O-P Amp iAmp (mV) Amp (1st) (%) Site1 Site2 Delta-0 (ms) Dist (cm) Josef (m/s) Norm Josef (m/s) Left Median Motor (Abd Poll Brev) Wrist ? 3.7 <3.9 11.4 >4.5 12.8 100.0 Elbow Wrist 3.6 19.5 54 >45 Elbow ? 7.3 10.4 11.8 91.2 Right Median Motor (Abd Poll Brev) Wrist ? 3.4 <3.9 9.8 >4.5 11.2 100.0 Elbow Wrist 3.6 19.0 53 >45 Elbow ? 7.0 8.7 10.3 88.8 Left Ulnar Motor (Abd Dig Minimi) Wrist ? 2.9 <3.0 10.8 >5 13.3 100.0 B Elbow Wrist 2.7 16.0 59 >45 B Elbow ? 5.6 10.3 12.9 95.4 A Elbow B Elbow 1.5 10.0 67 >45 A Elbow ? 7.1 9.8 12.3 90.7 Right Ulnar Motor (Abd Dig Minimi) Wrist ? 2.7 <3.0 12.1 >5 13.9 100.0 B Elbow Wrist 3.1 17.0 55 >45 B Elbow ? 5.8 11.6 13.6 95.9 A Elbow B Elbow 1.3 10.0 77 >45 A Elbow ? 7.1 11.1 13.1 91.7 Comparison Summary Table ?Stim Site NR Peak (ms) Norm Peak (ms) P-T Amp (?V) Site1 Site2 Delta-P (ms) Norm Delta (ms) Right Median/Radial Dig I Comparison (Digit 1 - 10cm) Median ? 2.4 <2.9 12.0 Median Radial 0.1 Radial ? 2.3 <2.8 3.5 EMG ?Side Muscle Nerve Root Ins Act Fibs Psw Amp Dur Poly Recrt Int Pat Comment Right 1stDorInt Ulnar C8-T1 Nml Nml Nml Nml Nml 0 Nml Complete Right FlexCarRad Median C6-7 Nml Nml Nml Nml Nml 0 Nml Complete Right Biceps Musculocut C5-6 Nml Nml Nml Nml Nml 0 Nml Complete Right Triceps Radial C6-7-8 Nml Nml Nml Nml Nml 0 Nml Complete Right Deltoid Axillary C5-6 Nml Nml Nml Nml Nml 0 Nml Complete Left 1stDorInt Ulnar C8-T1 Nml Nml Nml Nml Nml 0 Nml Complete Left FlexCarRad Median C6-7 Nml Nml Nml Nml Nml 0 Nml Complete Left Biceps Musculocut C5-6 Nml Nml Nml Nml Nml 0 Nml Complete Left Triceps Radial C6-7-8 Nml Nml Nml Nml Nml 0 Nml Complete Left Deltoid Axillary C5-6 Nml Nml Nml Nml Nml 0 Nml Complete FINDINGS: All motor and sensory nerves tested showed normal latencies, amplitudes and conduction velocities. Concentric needle EMG was performed in selected muscles of the upper extremity. Study bleed did not reveal signs of electric abnormalities as shown in the table below. IMPRESSION: 1. This is a normal study. 2. There is no electrodiagnostic evidence for median neuropathy, ulnar neuropathy, brachial plexopathy, or cervical radiculopathy. Thank you for your kind referral. Marie Zhu MD, HANNA Board Certified, [place] Board [employer] and [employer] (ABPMR) Board Certified, [place] Board [employer] Electro[employer] (ABEM) CODIN 27526 x 2 MTDD
== END 2024-01-04 14:03 | disposition home or self-care (01) ==
LOC: HO.NEURO 14:02
PROVIDERS: Visit Provider Physical Medicine & Rehabilitation
DX: E11.40 Type 2 diabetes mellitus with diabetic neuropathy, unspecified (principal)
CPT/HCPCS: 95886; 95911

== ENCOUNTER → 2024-01-04 14:06 | Outpatient (BNV) | payer OTHER, SELFPAY | PROVIDERS: Visit Provider Physical Medicine & Rehabilitation | DX: M79.641 Pain in right hand (principal); M79.642 Pain in left hand; R20.2 Paresthesia of skin | CPT/HCPCS: 95886; 95911 ==

== ENCOUNTER 2024-03-17 15:00 | Outpatient (AMB) | payer OTHER, SELFPAY ==
--- NOTE | 2024-03-17 15:03 | MHC.OFFVIS ---
Vital Signs 03/17/24 15:05 Height 5 ft 2 in Weight 120 lb BMI 21.9 BP 127/71 Blood Pressure Location Rt brachial Position Sitting Pulse 86 Pulse Source Pulse Oximeter Pulse Oximetry (%) 99 Oxygen Delivery Method Room Air Intake Visit Reasons: Qutenza Intake Note: Pain today 11/10 Manager Of Software Required: Yes Manager Of Software Name: daughter Accompanied by: Daughter Allergies No Known Allergies Allergy (Verified 03/17/24 15:06) HPI Comments Details: Patient presents today for follow up for diabetic neuropathy in bilateral feet. She was initially scheduled today for capsaicin 8% application topical patch but declined this today. Patient reports she underwent Caudal BENSON with Dr. Mendez at [facility] on 02/18/24 and reports her radicular back and leg pain has been improved. She continues to report minimal axial low back pain and states she is scheduled for more steroid injections next week to address her low back pain. I again discussed with patient and family that same interventional treatments for low back pain can be done through our office. We reviewed neuromodulation with SCS trial vs implant today, family reports this has been also reviewed with [facility] provider. Patient reports gabapentin 400 mg and amitriptyline 10 mg at bedtime has been beneficial, well tolerated without any side effects. She requests refill for amitriptyline. Denies any recent cough, cold, infection, fever or other significant changes in medical history since last office visit. PRIOR: Patient is a pleasant 52 years old female presents today with chronic feet pain related to diabetic neuropathy. Her pain is worse during the night and is constant. Pain has been worsening for the past 2 years, constant but most severe at night. Patient describes her pain in terms of tissue damage as constant hot burning, scalding, searing, tingling, and stinging. She is wearing light sandals today and keeps her shoes off during today?s visit. Patient?s daughter explained that the patient is most of the time barefoot as she has increased pain with anything that touches her feet. Pain is increased with activity and movements as well as with rest. Patient tried to manage her pain with gabapentin, lidocaine patches, and diclofenac gel with no pain relief. She also has low back pain and is currently seeing Dr. Fallon at [facility] and has received injections with good results. Patient reports her lumbar spine MRI was completed at [facility]. Reports low back pain with bending and radiation of pain into her right lower extremity anteriorly and laterally. MRI report is not available today. Most recent A1C level is not available as well. Family reports the patient is not checking blood sugars daily as this process is very painful to her fingers. Patient completed 6 weeks of physical therapy last year with no pain relief. 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 Bueno for a potential spinal cord stimulation trial for diabetic neuropathy in her feet. Patient denies any fever, weight loss, bladder or bowel incontinence or saddle anesthesia. FOR[facility]LY [facility], [facility] Medical History (Updated 03/17/24 @ 15:32 by JOSEFA Lala) Lumbar spinal stenosis Vitamin D deficiency Insomnia Depression GERD (gastroesophageal reflux disease) Hypertension Diabetic neuropathy Social History Patient Tobacco Use Status: Former Tobacco user Tobacco use type: Smokeless Tobacco Current occupational status: unemployed Current occupation: right hand Review of Systems Const All systems reviewed & are unremarkable except as noted in HPI and below Physical Exam General: Appears afebrile. Alert and oriented. Mood and affect appropriate. Follows and participates in conversation appropriately. Respiratory effort is unlabored. Able to transition from sit to stand unassisted. Uses cane with ambulation. Ambulates with bilaterally normal heel strike and toe off. Back/Spine/Pelvis Cervical Spine: cervical muscular tenderness, pain with cervical ROM and No Cervical spine tenderness Thoracic/Lumbar Spine: thoracic and lumbar spine normal to inspection, No Thoracic/lumbar spine scar(s), Lasegue's sign negative, straight leg raise negative bilaterally, pain with thoraco-lumbar ROM, thoraco-lumbar ROM limited, No thoracic spinal tenderness and lumbar spinal tenderness at L3, at L4 and at L5 Extrem General: Yes full ROM, Yes capillary refill normal, Yes no clubbing, cyanosis or edema and Yes no calf tenderness Results Reviewed Results Reviewed: NE electromyogram (EMG); NE nerve conduction velocity 10/24/23 FINDINGS: Bilateral sural nerves showed no response. All other nerves tested were within normal. Concentric needle EMG was performed in selected muscles of the bilateral lower extremity. Study did not reveal signs of electric abnormalities as shown in the table below. IMPRESSION: 1. This is an abnormal study. 2. 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 3. There is no electrodiagnostic evidence for peroneal neuropathy, tibial neuropathy. lumbosacral plexopathy, or lumbar radiculopathy. Assessment & Plan Assessment & Plan (1) Chronic painful diabetic neuropathy: Code(s): E11.40 - Type 2 diabetes mellitus with diabetic neuropathy, unspecified Category: Medical (2) Lumbar radiculitis: Code(s): M54.16 - Radiculopathy, lumbar region Category: Medical (3) Lumbar spondylosis: Code(s): M47.816 - Spondylosis without myelopathy or radiculopathy, lumbar region Category: Medical (4) Lumbar spinal stenosis: Code(s): M48.061 - Spinal stenosis, lumbar region without neurogenic claudication Category: Medical Plan Patient would like to pause topical capsaicin 8% for diabetic neuropathy in bilateral feet at this time and reassess in 3 months follow up. Continue gabapentin and amitriptyline. Denies any side effects. Refill sent for amitriptyline today per patient's request. Patient is status post Caudal BENSON on 02/18/[address] Mendez at [facility] with good pain relief. Rates her back and leg pain at 2/10 today. She is scheduled to undergo more back injections at [facility] next week per family. We reviewed Neuromodulation with SCS trial vs implant today. Patient is aware interventional treatments can be provided through our office as well. All questions and concerns have been answered and patient agreed with the plan. Follow up as needed. Medications: Changed From amitriptyline 10 mg PO BEDTIME 30 days 30 tabs 1RF pain E11.40 - Type 2 diabetes mellitus with diabetic neuropathy, unspecified To amitriptyline 10 mg PO BEDTIME 30 days PRN 30 tabs 3RF pain E11.40 - Type 2 diabetes mellitus with diabetic neuropathy, unspecified Coding Level of Care Code Est Pt Level 4 (43772) Diagnoses Chronic painful diabetic neuropathy E11.40 Lumbar radiculitis M54.16 Lumbar spondylosis M47.816 Lumbar spinal stenosis M48.061
[2024-03-17 15:05] VITALS: BP 127/71; PULSE 86; O2SAT 99; BMI 21.9
== END 2024-03-17 15:23 | disposition home or self-care (01) ==
PROVIDERS: PCP Physician Assistant; Visit Provider Nurse Practitioner Family
DX: E11.40 Type 2 diabetes mellitus with diabetic neuropathy, unspecified (principal); M54.16 Radiculopathy, lumbar region; M47.816 Spondylosis without myelopathy or radiculopathy, lumbar region; M48.061 Spinal stenosis, lumbar region without neurogenic claudication
CPT/HCPCS: 99214

== ENCOUNTER → 2024-03-17 15:00 | Outpatient (BNVA) | payer OTHER, SELFPAY | PROVIDERS: PCP Physician Assistant; Visit Provider Nurse Practitioner Family | DX: E11.40 Type 2 diabetes mellitus with diabetic neuropathy, unspecified (principal); M54.16 Radiculopathy, lumbar region; M47.816 Spondylosis without myelopathy or radiculopathy, lumbar region; M48.061 Spinal stenosis, lumbar region without neurogenic claudication | CPT/HCPCS: 99212 ==